=== PATIENT | male | born 1995 | race Two or more races ===

== ENCOUNTER 2022-02-05 23:52 | Emergency (ER) | payer OTHER ==
[~2022-02-05] VITALS: Ht 175.3 cm; Wt 72.6 kg
[2022-02-06] MEDS ORDERED: KETO10TA2 PO (02:08)
[2022-02-06] MEDS ORDERED: CEPHALEXIN500 MG PO (02:08)
== END 2022-02-06 03:04 ==
LOC: ER 23:52
DX: S61.422A Laceration with foreign body of left hand, initial encounter (principal); V00.831A Fall from motorized mobility scooter, initial encounter; Y93.I9 Activity, other involving external motion; Y92.9 Unspecified place or not applicable; S49.92XA Unspecified injury of left shoulder and upper arm, initial encounter

== ENCOUNTER 2022-02-06 15:05 | Emergency (ER) | payer OTHER ==
[~2022-02-06] VITALS: Ht 175.3 cm; Wt 72.6 kg
[~2022-02-06 15:05] MED LIST: CEPHALEXIN500 MG PO; KETO10TA2 PO
== END 2022-02-06 16:28 | disposition home or self-care (01) ==
LOC: ER 15:05
DX: S61.422A Laceration with foreign body of left hand, initial encounter (principal)